=== PATIENT | male | born 1935 ===

== ENCOUNTER 2023-07-27 10:29 | Outpatient (OUT) | payer MEDICARE, SELFPAY ==
--- NOTE | 2023-07-27 | XR_ITS ---
The [address] [address] Patient Name: HALEY PRICE MRN: [id number] date: 1935 Sex: M Assigned Patient Location: Current Patient Location: Accession/Order Number: [id number] Exam Date: 07/27/2023 10:31 Report Date: 07/27/2023 13:31 At the request of: MELISSA FREEMAN Procedure: XR foot LT min 3V PROCEDURE: XR foot LT min 3V, XR ankle LT min 3V COMPARISON: None. HISTORY: LEFT FOOT PAIN FINDINGS: BONES:Persistent flexion of the toes limits their evaluation. Moderate to severe degenerative changes with joint space narrowing marginal osteophyte formation, most significant at the first metatarsal-phalangeal joint. Moderate enthesopathic spurring of the calcaneus. SOFT TISSUES:Negative. No visible soft tissue swelling. EFFUSION:None visible. OTHER: Negative. 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
--- NOTE | 2023-07-27 | XR_ITS ---
The [address] [address] Patient Name: HALEY PRICE MRN: [id number] date: 1935 Sex: M Assigned Patient Location: Current Patient Location: Accession/Order Number: [id number] Exam Date: 07/27/2023 10:33 Report Date: 07/27/2023 13:31 At the request of: MELISSA FREEMAN Procedure: XR ankle LT min 3V PROCEDURE: XR foot LT min 3V, XR ankle LT min 3V COMPARISON: None. HISTORY: LEFT FOOT PAIN FINDINGS: BONES:Persistent flexion of the toes limits their evaluation. Moderate to severe degenerative changes with joint space narrowing marginal osteophyte formation, most significant at the first metatarsal-phalangeal joint. Moderate enthesopathic spurring of the calcaneus. SOFT TISSUES:Negative. No visible soft tissue swelling. EFFUSION:None visible. OTHER: Negative. 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
== END 2023-07-27 10:30 | disposition home or self-care (01) ==
LOC: EC 10:29
PROVIDERS: Visit Provider Podiatrist Foot & Ankle Surgery
DX: M79.672 Pain in left foot (principal); M25.572 Pain in left ankle and joints of left foot; M19.072 Primary osteoarthritis, left ankle and foot
CPT/HCPCS: 73610; 73630